=== PATIENT | male | born 1975 | race Caucasian/White ===

== ENCOUNTER 2020-03-27 05:10 | Emergency (ER) | payer OTHER, SELFPAY ==
[~2020-03-27] VITALS: Ht 175.3 cm; Wt 78.4 kg
[2020-03-27] MEDS ORDERED: KETOROLAC 30 MG/1 ML ONE (05:57)
[2020-03-27] MEDS ORDERED: OXYcodone/APAP 5/325MG TABLET ONE (05:58)
[2020-03-27] MEDS ORDERED: OXYcodone/APAP 5/325MG TABLET PO ONE (06:00)
[2020-03-27] MEDS ORDERED: KETOROLAC 30 MG/1 ML IM ONE (06:00)
--- NOTE | 2020-03-27 06:03 | NUR ---
PT MEDICATED PER EMAR. 5 RIGHTS ADDRESSED. PT PROVIDED WITH PILLOW TO ELEVATE FOOT. ALL MONITORING EQUIPMENT IN PLACE AND PT PUT IN POSITION OF COMFORT. CALL LIGHT WITHIN REACH. DENIES ANY NEEDS AT THIS TIME
[2020-03-27 06:06] LABS: MEAN CORPUSCULAR HEMOGLOBIN 21.5 pg (27.5-34.5); MEAN CORPUSCULAR HGB CONC 30.1 g/dL (33.2-36.2); MEAN CORPUSCULAR VOLUME 71.6 fL (81-97); MEAN PLATELET VOLUME 11.4 fL (7.4-10.4); PLATELET COUNT 231 x10^3/uL (130-400); RED BLOOD COUNT 4.44 x10^6/uL (4.38-5.82)
[2020-03-27 06:35] LABS: BASOPHILS # (AUTO) 0.05 x10^3/uL (0-0.1); BASOPHILS % (AUTO) 1 % (0-1); EOSINOPHILS # (AUTO) 0.17 x10^3/uL (0-0.4); EOSINOPHILS % (AUTO) 2 % (1-7); LYMPHOCYTES # (AUTO) 1.55 x10^3/uL (1-3.4); LYMPHOCYTES % (AUTO) 21 % (22-44); MD SCAN; MONOCYTES # (AUTO) 0.62 x10^3/uL (0.2-0.8); MONOCYTES % (AUTO) 9 % (2-9); NEUTROPHILS # (AUTO) 4.87 x10^3/uL (1.8-6.8); NEUTROPHILS % (AUTO) 67 % (42-75)
[2020-03-27] MEDS ORDERED: SODIUM CHLORIDE FLUSH 10ML SYR IVF ONE (07:30)
--- NOTE | 2020-03-27 07:50 | NUR ---
PT CONCERNED AT THIS TIME REGARDING NOT HAVING INSURRANCE AND BEING "STUCK" WITH A BILL FOR THE MRI ORDERED. PT STATES HE WANTS TO SPEAK TO A FINANCIAL COUNSUELOR PRIOR TO EVAM, PT ACCESS CALLED, [facility] CALLED, TERRIM WITH [facility] TO COME SPEAK TO PT AFTER 0815 THIS AM. DELAY IN CARE. ERMD UPDATED
[2020-03-27 08:32] LABS: ALBUMIN 3.5 g/dL (3.4-5.0); ANION GAP 4 mmol/L (5-15); CALCIUM 8.3 mg/dL (8.5-10.1); CHLORIDE 108 mmol/L (98-107); CREATININE 0.85 mg/dL (0.7-1.3)
--- NOTE | 2020-03-27 08:36 | NUR ---
PT NOW AGREEING TO PROCEED WITH MRI AFTER SPEAKING WITH [facility] ADVISOR, MRI CALLED TO UPDATE
[2020-03-27 08:47] VITALS: BP 126/90
[2020-03-27] MEDS ORDERED: GADOTERATE 7.5 MMOL/15 ML SYR ONE (10:06)
[2020-03-27] MEDS ORDERED: CEFAZOLIN 1,000 MG IM ONE (11:00)
[2020-03-27] MEDS ORDERED: LIDOCAINE-MPF 1%, 5ML ONE (11:00)
[2020-03-27] MEDS ORDERED: CEFAZOLIN 1,000 MG ONE (11:01)
== END 2020-03-27 12:13 ==
LOC: ED 06:27
DX: L03.115 Cellulitis of right lower limb (principal); M25.571 Pain in right ankle and joints of right foot; M10.9 Gout, unspecified
CPT/HCPCS: 36415; 73610; 73720; 80048; 82040; 84550; 85025; 96372; 99285; A9575; J0690; J1885

== ENCOUNTER 2020-08-26 17:40 | Emergency (ER) | payer MEDICAID ==
[~2020-08-26] VITALS: Ht 175.3 cm; Wt 77.2 kg
[2020-08-26 18:14] LABS: BASOPHILS % (AUTO) 1 % (0-1); EOSINOPHILS % (AUTO) 2 % (1-7); LYMPHOCYTES % (AUTO) 28 % (22-44); MEAN CORPUSCULAR HEMOGLOBIN 21.4 pg (27.5-34.5); MEAN CORPUSCULAR HGB CONC 31.1 g/dL (33.2-36.2); MEAN PLATELET VOLUME 10.1 fL (7.4-10.4); MONOCYTES % (AUTO) 10 % (2-9); NEUTROPHILS % (AUTO) 58 % (42-75); PLATELET COUNT 207 x10^3/uL (130-400); RED BLOOD COUNT 4.07 x10^6/uL (4.38-5.82); RED CELL DISTRIBUTION WIDTH 17.2 % (9.4-14.8)
[2020-08-26 18:15] LABS: MD NO
--- NOTE | 2020-08-26 18:23 | NUR ---
LONG HX CONSTIPATION AND RECTAL BLEEDING BRIGHT BLOOD TADYA INCREASING MOR THAN NORMAL
[2020-08-26 18:26] LABS: ALBUMIN 4.1 g/dL (3.4-5.0); ANION GAP 5 mmol/L (5-15); CALCIUM 8.8 mg/dL (8.5-10.1); CHLORIDE 109 mmol/L (98-107)
[2020-08-26 18:30] LABS: ALANINE AMINOTRANSFERASE 34 U/L (12-78); ALKALINE PHOSPHATASE 55 U/L (45-117); BILIRUBIN,TOTAL 0.4 mg/dL (0.2-1.0); CREATININE 0.88 mg/dL (0.7-1.3); TOTAL PROTEIN 7.6 g/dL (6.4-8.2)
--- NOTE | 2020-08-26 19:04 | NUR ---
REPORT FROM RADHA HEBERT. MILTON AT BEDSIDE FOR EVAL.
[2020-08-26] MEDS ORDERED: SODIUM CHLORIDE FLUSH 10ML SYR IVF ONE (19:30)
--- NOTE | 2020-08-26 19:59 | NUR ---
THIS RN AT BEDSIDE TO ATTEMPT IV START AT 1930. IV ACCESS OBTAINED NOW.
--- NOTE | 2020-08-26 20:28 | NUR ---
PT BACK FROM IMAGING, ON LAPTOP, TYRON.
--- NOTE | 2020-08-26 20:43 | NUR ---
THIS RN AT BEDSIDE FOR RECTAL EXAM.
[2020-08-26 20:49] VITALS: BP 145/63
== END 2020-08-26 21:19 | disposition home or self-care (01) ==
LOC: ED 19:18
DX: K64.8 Other hemorrhoids (principal); K59.00 Constipation, unspecified; K60.2 Anal fissure, unspecified; R94.31 Abnormal electrocardiogram [ECG] [EKG]
CPT/HCPCS: 36415; 74177; 80053; 85025; 93005; 99285

== ENCOUNTER 2020-12-31 08:24 | Inpatient (IN) | payer MEDICAID ==
[~2020-12-31] VITALS: Ht 175.3 cm; Wt 82.4 kg
--- NOTE | 2020-12-31 08:39 | NUR ---
PT AMBULATORY TO ROOM FROM TRIAGE WITH UPRIGHT, STEADY GAIT, PT CHANGED INTO GOWN, MONITORS IN PLACE. AT .
--- NOTE | 2020-12-31 08:53 | NUR ---
PT RESTING COMFORTABLY ON GURNEY, WITH LAPTOP. PT STATED HE DOES NOT WANT ANYONE TO KNOW HE IS HERE, NO VISITORS/ NO CALLS. CHARGE NURSE/AIR ANALYSIS TECHNICIAN AWARE
[2020-12-31 09:12] LABS: BASOPHILS % (AUTO) 2 % (0-1); EOSINOPHILS % (AUTO) 1 % (1-7); LYMPHOCYTES % (AUTO) 15 % (22-44); MEAN CORPUSCULAR HEMOGLOBIN 18.7 pg (27.5-34.5); MEAN PLATELET VOLUME 9.9 fL (7.4-10.4); MONOCYTES % (AUTO) 11 % (2-9); NEUTROPHILS % (AUTO) 71 % (42-75); PLATELET COUNT 185 x10^3/uL (130-400); RED BLOOD COUNT 3.57 x10^6/uL (4.38-5.82); RED CELL DISTRIBUTION WIDTH 17.9 % (9.4-14.8)
[2020-12-31 09:27] LABS: ALBUMIN 3.3 g/dL (3.4-5.0); ANION GAP 5 mmol/L (5-15); CALCIUM 8.4 mg/dL (8.5-10.1); CHLORIDE 110 mmol/L (98-107); CREATININE 0.77 mg/dL (0.7-1.3)
[2020-12-31 09:34] LABS: MEAN CORPUSCULAR HGB CONC 29.5 g/dL (33.2-36.2)
[2020-12-31 09:55] LABS: ANISOCYTOSIS 1+; MD MORPH REVIEW ONLY
[2020-12-31 09:56] LABS: HYPOCHROMIA 2+; MICROCYTOSIS 2+
[2020-12-31 09:57] LABS: <PLATELET ESTIMATE> ADEQUATE; LARGE PLATELETS 1+
[2020-12-31 09:58] LABS: OVALOCYTES 1+
--- NOTE | 2020-12-31 10:11 | NUR ---
PT SITTING CALMLY ON GURUFINO, NADN/VSS. CALL LIGHT WITHIN REACH. NO NEEDS AT THIS TIME.
--- NOTE | 2020-12-31 10:58 | NUR ---
Pt to be admitted to [facility], room 343. Report called to TIANA.
[2020-12-31 11:42] LABS: HCT (SEDRATE) 22.6 % (39.2-51.8)
[2020-12-31] MEDS: LACTATED RINGERS 1,000 ML IV SCH (13:00)
[2020-12-31] MEDS ORDERED: SULF1TAB24 PO (14:08)
[2020-12-31] MEDS ORDERED: CEPH750C9 PO (14:08)
[2020-12-31 14:38] VITALS: BP 122/76
[2020-12-31] MEDS: AMPICILLIN/SULBACTAM 3 GM in SODIUM CHLORIDE 0.9% 100 ML IV SCH ×2 (15:15→22:54)
[2020-12-31] MEDS ORDERED: GOLYTELY 4,000ML ORAL.SOL PO ONE (18:00)
[2020-12-31 19:06] VITALS: BP 117/71
[2020-12-31] MEDS: FAMOTIDINE 20 MG TABLET PO SCH (20:27)
[2020-12-31 22:13] VITALS: BP 121/74
[2021-01-01 00:49] VITALS: BP 116/72
[2021-01-01] MEDS: LACTATED RINGERS 1,000 ML IV SCH ×2 (02:03→19:48)
[2021-01-01 05:42] LABS: BASOPHILS % (AUTO) 2 % (0-1); EOSINOPHILS % (AUTO) 3 % (1-7); LYMPHOCYTES % (AUTO) 27 % (22-44); MEAN CORPUSCULAR HEMOGLOBIN 19.1 pg (27.5-34.5); MEAN CORPUSCULAR HGB CONC 29.7 g/dL (33.2-36.2); MEAN PLATELET VOLUME 9.6 fL (7.4-10.4); MONOCYTES % (AUTO) 11 % (2-9); NEUTROPHILS % (AUTO) 57 % (42-75); PLATELET COUNT 164 x10^3/uL (130-400); RED BLOOD COUNT 3.47 x10^6/uL (4.38-5.82); RED CELL DISTRIBUTION WIDTH 17.9 % (9.4-14.8)
[2021-01-01 05:43] LABS: MD NO
[2021-01-01 05:53] LABS: ANION GAP 3 mmol/L (5-15); CALCIUM 8.3 mg/dL (8.5-10.1); CHLORIDE 112 mmol/L (98-107)
[2021-01-01 05:54] LABS: CREATININE 0.74 mg/dL (0.7-1.3)
[2021-01-01] MEDS: AMPICILLIN/SULBACTAM 3 GM in SODIUM CHLORIDE 0.9% 100 ML IV SCH ×3 (06:16→22:37)
[2021-01-01 07:48] LABS: ABSOLUTE RETICS # 0.047 x10^6/uL (0.5-1.5); RETICULOCYTE COUNT % 1.34 % (0.5-1.5)
[2021-01-01 07:49] LABS: RED BLOOD COUNT 3.47 x10^6/uL (4.38-5.82)
[2021-01-01 07:59] VITALS: BP 137/82
[2021-01-01] MEDS: FAMOTIDINE 20 MG TABLET PO SCH ×2 (08:04→21:43)
[2021-01-01 13:36] VITALS: BP 132/79
[2021-01-01 14:19] LABS: ANA SCREEN NEGATIVE (Negative)
[2021-01-01] MEDS ORDERED: CHLORHEXIDINE 15 ML UDC ONE (14:49)
[2021-01-01] MEDS ORDERED: PROPOFOL 50 ML ONE (15:01)
[2021-01-01] MEDS ORDERED: MEPERIDINE/PF 25MG/0.5ML IVPush PRN (15:30)
[2021-01-01] MEDS ORDERED: MIDAZOLAM 1 MG/ML, 2ML IV PRN (15:30)
[2021-01-01] MEDS ORDERED: PROMETHAZINE 25 MG/ML, 1ML IVPush PRN (15:30)
[2021-01-01] MEDS ORDERED: PROMETHAZINE 12.5 MG SUPP PR PRN (15:30)
[2021-01-01] MEDS ORDERED: ONDANSETRON 2MG/ML, 2ML IVPush PRN (15:30)
[2021-01-01] MEDS ORDERED: EPHEDRINE 50 MG/ML, 1ML IVPush PRN (15:30)
[2021-01-01] MEDS ORDERED: HYDROmorphone 1 MG/ML, 1ML INJ IVPush PRN (15:30)
[2021-01-01] MEDS ORDERED: ALBUTEROL SULFATE 2.5 MG/3 ML NPPB PRN (15:30)
[2021-01-01] MEDS ORDERED: hydrALAzine 20 MG/ML, 1ML IV PRN (15:30)
[2021-01-01] MEDS ORDERED: ACETAMINOPHEN 325 MG TABLET PO PRN (15:30)
[2021-01-01] MEDS ORDERED: FENTANYL PF 100 MCG/2ML IV PRN (15:30)
[2021-01-01] MEDS ORDERED: LABETALOL 5MG/ML, 20ML IV PRN (15:30)
[2021-01-01] MEDS ORDERED: DIAZEPAM 5 MG/ML, 2ML IVPush PRN (15:30)
[2021-01-01] MEDS ORDERED: OXYcodone 5 MG/5 ML ORAL.SOL UDC PO PRN (15:30)
[2021-01-01] MEDS ORDERED: DIPHENHYDRAMINE 50 MG/ML, 1ML IVPush PRN ×2 (15:30)
[2021-01-01] MEDS ORDERED: GOLYTELY 4,000ML ORAL.SOL PO ONE (18:30)
[2021-01-01 18:46] VITALS: BP 131/72
[2021-01-02 00:37] VITALS: BP 132/86
[2021-01-02 05:02] LABS: BASOPHILS % (AUTO) 1 % (0-1); EOSINOPHILS % (AUTO) 2 % (1-7); LYMPHOCYTES % (AUTO) 26 % (22-44); MEAN CORPUSCULAR HEMOGLOBIN 18.9 pg (27.5-34.5); MEAN PLATELET VOLUME 9.7 fL (7.4-10.4); MONOCYTES % (AUTO) 9 % (2-9); NEUTROPHILS % (AUTO) 62 % (42-75); PLATELET COUNT 184 x10^3/uL (130-400); RED BLOOD COUNT 3.45 x10^6/uL (4.38-5.82); RED CELL DISTRIBUTION WIDTH 18.4 % (9.4-14.8)
[2021-01-02 05:18] LABS: CALCIUM 8.2 mg/dL (8.5-10.1); CHLORIDE 112 mmol/L (98-107)
[2021-01-02 05:22] LABS: ANION GAP 4 mmol/L (5-15); CREATININE 0.66 mg/dL (0.7-1.3)
[2021-01-02 05:33] LABS: MEAN CORPUSCULAR HGB CONC 29.7 g/dL (33.2-36.2)
[2021-01-02 05:35] LABS: MD NO
[2021-01-02] MEDS: AMPICILLIN/SULBACTAM 3 GM in SODIUM CHLORIDE 0.9% 100 ML IV SCH ×2 (06:17→14:30)
[2021-01-02 07:02] VITALS: BP 115/75
[2021-01-02] MEDS ORDERED: FERROUS GLUCONATE 324 MG TABLET PO SCH (08:00)
[2021-01-02] MEDS: FAMOTIDINE 20 MG TABLET PO SCH (08:07)
[2021-01-02] MEDS ORDERED: BISACODYL 5 MG EC TABLET PO ONE (09:30)
[2021-01-02] MEDS ORDERED: CHLORHEXIDINE 15 ML UDC ONE (10:26)
[2021-01-02] MEDS ORDERED: PROPOFOL 50 ML ONE (10:35)
[2021-01-02] MEDS ORDERED: MIDAZOLAM 1 MG/ML, 2ML ONE (10:36)
[2021-01-02] MEDS ORDERED: ONDANSETRON 2MG/ML, 2ML IVPush PRN (11:00)
[2021-01-02] MEDS ORDERED: FENTANYL PF 100 MCG/2ML IV PRN (11:00)
[2021-01-02] MEDS: LACTATED RINGERS 1,000 ML IV SCH (11:31)
[2021-01-02] MEDS ORDERED: SIMETHICONE 125 MG CHEW TAB ONE (12:29)
[2021-01-02] MEDS ORDERED: SIMETHICONE 125 MG CHEW TAB PO PRN (12:30)
[2021-01-02 12:42] VITALS: BP 166/85
[2021-01-02] MEDS ORDERED: FERR324T23 PO (14:03)
[2021-01-02] MEDS ORDERED: SIME125T PO (14:03)
== END 2021-01-02 14:55 | disposition home or self-care (01) | DRG 378 ==
LOC: ED 09:09 → SUATTDRO 10:26 → 3N 11:11 → ED 12:22
PROVIDERS: ADMIT Family Medicine; ATTEND Family Medicine
PROC: 0DJD8ZZ Inspection of Lower Intestinal Tract, Via Natural or Artificial Opening Endoscopic (ICD-10-PCS; 2021-01-01)
PROC: 0DJ08ZZ Inspection of Upper Intestinal Tract, Via Natural or Artificial Opening Endoscopic (ICD-10-PCS; principal; 2021-01-01 15:30)
DX: K92.2 Gastrointestinal hemorrhage, unspecified (principal); L03.116 Cellulitis of left lower limb; Z20.822 Contact with and (suspected) exposure to COVID-19; K64.9 Unspecified hemorrhoids; R79.82 Elevated C-reactive protein (CRP); D50.0 Iron deficiency anemia secondary to blood loss (chronic); E88.09 Other disorders of plasma-protein metabolism, not elsewhere classified; Z87.19 Personal history of other diseases of the digestive system; Z79.899 Other long term (current) drug therapy; Z79.891 Long term (current) use of opiate analgesic; Z79.01 Long term (current) use of anticoagulants; Z84.89 Family history of other specified conditions; I77.6 Arteritis, unspecified
CPT/HCPCS: 36415; 80048; 82040; 82728; 83540; 83550; 83735; 85014; 85018; 85025; 85045; 85651; 86038; 86140; 87635; G0378; J0295; J2250; J2704; J7120